=== PATIENT | female | born 1960 | race Caucasian/White ===

== ENCOUNTER 2017-01-29 14:24 | Inpatient (IN) ==
[2017-01-29] MEDS ORDERED: tiZANidine 4 MG TABLET PO PRN (14:38)
--- NOTE | 2017-01-29 15:04 | Internal Med History&Physical ---
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 Well diagnosed itself patient had a redo for her Qualifiers: Encounter type: subsequent encounter Qualified Code(s): T84.038D - Mechanical loosening of other internal prosthetic joint, subsequent encounter; Z96.659 - Presence of unspecified artificial knee joint; Z96.659 - Presence of unspecified artificial knee joint (2) Status post revision of total knee replacement Current visit: No Status: Acute This the reason for the revision was the aseptic loosening of the prosthesis Qualifiers: Laterality: left Qualified Code(s): Z96.652 - Presence of left artificial knee joint (3) DMII (diabetes mellitus, type 2) Current visit: No Status: Chronic History of DM type II LAD does COPD Qualifiers: Diabetes mellitus complication status: without complication Diabetes mellitus longterm insulin use: unspecified longterm insulin use status Qualified Code(s): E11.9 - Type 2 diabetes mellitus without complications Internal Medicine - H&P: HPI Chief complaint: Patient had a redo of a total knee replacement. This was called an asepti Admitted From: Hospital to Hospital Transfer Plans for Post Hospital Care: Home History of present illness: Ms. Barney is a 56 year old female Past Med Surg Social Fam HX - Past Medical History Medical history: COPD, diabetes, GERD, hyperlipidemia, hypertension, kidney stones, other Psychiatric history: anxiety, depression, panic disorder - Past Surgical History Surgical History: , cataract, cholecystectomy, hysterectomy, other - Social History Smoking Status: Current every day smoker Smokeless Tobacco Status: No Alcohol use: none Drug use: marijuana - Family History Mother Adopted: No Living Status: Still Living Internal Medicine - H&P: Meds Albuterol Sulfate [Albuterol Inhaler] 1 - 2 puff IH Q6HR PRN 12/22/14 [History] Budesonide/Formoterol 160/4.5 [Symbicort] 2 puff IH BIDR 12/22/14 [History] Chlordiazepoxide/Clidinium 1 each PO TID 12/22/14 [History] DULoxetine [Cymbalta] 120 mg PO QAM 12/22/14 [History] Esomeprazole Magnesium [Nexium] 40 mg PO BID 12/22/14 [History] Ezetimibe [Zetia] 10 mg PO DAILY 12/22/14 [History] Fluticasone Propionate Nasal [Flonase] 2 spray NS DAILY 12/22/14 [History] Gabapentin [Neurontin] 600 mg PO HS 12/22/14 [History] rOPINIRole [Requip] 2 mg PO HS 12/22/14 [History] ALPRAZolam [Xanax 1 MG Tablet] 1 mg PO TID #6 tablet 01/25/17 [Rx] Aspirin Enteric Coated [Aspirin EC] 325 mg PO DAILY #21 tablet.dr 01/25/17 [Rx] Alprazolam [Xanax] 2 mg PO TID PRN 01/26/17 [History] Celecoxib [Celebrex] 100 mg PO BID 01/26/17 [History] Glimepiride [Amaryl] 2 mg PO BID 01/26/17 [History] Insulin Glargine,Hum.rec.anlog [Lantus Solostar] 15 units SQ HS 01/26/17 [ History] Lovastatin 80 mg PO HS 01/26/17 [History] Metformin HCl [Glucophage Xr] 500 mg PO DAILY 01/26/17 [History] Mv,Iron,Min/Folic Acid/Biotin [Hair, Skin and Nails Softgel] 66.7 mcg PO DAILY 01/26/17 [History] Omeprazole [PriLOSEC] 40 mg PO BID 01/26/17 [History] Pioglitazone [Actos] 45 mg PO 0800 01/26/17 [History] SitaGLIPtin [Januvia] 100 mg PO DAILY 01/26/17 [History] Tizanidine HCl 4 - 8 mg PO HS PRN 01/26/17 [History] cloNIDine HCl [Clonidine HCl] 0.3 mg PO DAILY 01/26/17 [History] OxyCODONE Immed Rel [Roxicodone 5 MG] 5 - 10 mg PO Q6H PRN #40 tablet 01/27/17 [ Rx] 3 Allergy/AdvReac Type Severity Reaction Status Date / Time atorvastatin [From Lipitor] Allergy Swelling Verified 12/22/14 22:16 of Lip/Tongue/Throat rosuvastatin [From Crestor] Allergy Swelling Verified 12/22/14 22:16 of Lip/Tongue/Throat acetaminophen [From Percocet] AdvReac See Verified 01/26/17 10:57 Comments morphine AdvReac Vomiting Verified 04/28/16 12:31 Oxycodone [From Percocet] AdvReac See Verified 01/26/17 10:57 Comments propoxyphene AdvReac Vomiting Verified 01/26/17 10:57 [From Darvocet-N] Varenicline [From Chantix] AdvReac See Verified 01/26/17 11:03 Comments All Systems PM: A 10-system review of systems was performed and is negative for pertinent findings except as documented above in the HPI. - Constitutional Vitals: Temp Pulse Resp BP Pulse Ox 97.9 F 55 15 128/76 92 01/29/17 14:41 01/29/17 14:41 01/29/17 14:41 01/29/17 14:41 01/29/17 14:41 - Head Head exam: Present: atraumatic, normal inspection, normocephalic - Neck Neck exam general surgery: Present: supple, trachea midline. Absent: lymphadenopathy - Respiratory Respiratory exam: Present: CTAB. Absent: accessory muscle use, rales, rhonchi, wheezes - Cardiovascular Cardiovascular exam: Present: RRR, +S1, +S2. Absent: diastolic murmur, gallop, rubs, systolic murmur - GI/Abdominal GI/Abdominal exam: Present: normal bowel sounds, soft, no peritoneal signs. Absent: distended, tenderness Internal Med - H&P Results - Labs Labs: Pending
[2017-01-29] MEDS: *HR* OxyCODONE Immed Rel 5 MG TABLET PO PRN ×2 (16:45→22:02)
[2017-01-29] MEDS: ALPRAZolam 1 MG TABLET PO SCH ×2 (16:45→22:01)
[2017-01-29] MEDS ORDERED: ALPRAZolam 1 MG TABLET PO SCH (21:00)
[2017-01-29] MEDS: rOPINIRole 1 MG TABLET PO SCH (22:00)
[2017-01-29] MEDS: cloNIDine HCl 0.1 MG TABLET PO SCH (22:00)
[2017-01-29] MEDS: Gabapentin 300 MG CAPSULE PO SCH (22:01)
[2017-01-29] MEDS: Celecoxib 100 MG CAPSULE PO SCH (22:01)
[2017-01-29] MEDS: *HR* Glimepiride 2 MG TABLET PO SCH (22:01)
[2017-01-29] MEDS: Insulin DETEMIR 100 UNIT/ML X5UNITS SQ SCH (22:08)
[2017-01-29] MEDS: Budesonide/Formoterol 160/4.5 MDI IH SCH (22:25)
[2017-01-30 05:28] LABS: Basophils # 0.1 K/mcL (0.0-0.2); Basophils % 0.5 %; Eosinophils # 0.4 K/mcL (0.0-0.6); Eosinophils % 2.8 %; Hematocrit 36.7 % (35.3-44.9); Hemoglobin 12.2 g/dL (11.5-15.4); Immature Granulocytes % 0.5 % (0-4); Lymphocytes # 4.2 K/mcL (0.6-4.6); Lymphocytes % 30.8 %; Mean Corpuscular HGB Conc 33.2 g/dL (31.6-35.5); Mean Corpuscular Volume 84.2 fL (83.0-100.0); Mean Platelet Volume 10.6 fL (9.4-12.4); Monocytes # 0.7 K/mcL (0.0-1.3); Platelet Count 252 K/mcL (140-400); Red Blood Count 4.36 M/mcL (3.82-4.97); Red Cell Distribution Width 15.9 % (11.5-14.5); Segmented Neutrophils % 60.4 %
[2017-01-30 05:33] LABS: Neutrophils # 8.2 K/mcL (1.6-8.9)
[2017-01-30 05:43] LABS: BUN/Creatinine Ratio 29 (6-26); Blood Urea Nitrogen 21 mg/dL (7-20); Calcium 9.5 mg/dL (8.6-10.8); Carbon Dioxide 26 mEq/L (19-29); Chloride 102 mEq/L (98-109); Glucose 154 mg/dL (70-99); Osmolality,Calculated 294 (280-300); Potassium 3.8 mEq/L (3.5-4.5); Sodium 139 mEq/L (136-145); eGFR For African Americans > 60 (> 60); eGFR For Non-African Americans > 60 (> 60)
[2017-01-30] MEDS: *HR* Enoxaparin 40 MG/0.4 ML SYRINGE SQ SCH (06:28)
[2017-01-30] MEDS: BIOTIN PO SCH (08:23)
[2017-01-30] MEDS: *HR* SitaGLIPtin 100 MG TABLET PO SCH (08:23)
[2017-01-30] MEDS: MV IRON MIN PO SCH (08:23)
[2017-01-30] MEDS: Budesonide/Formoterol 160/4.5 MDI IH SCH ×2 (08:23→21:00)
[2017-01-30] MEDS: (Ezetimibe [Zetia] 10 MG) PO SCH (08:23)
[2017-01-30] MEDS: FOLIC ACID PO SCH (08:23)
[2017-01-30] MEDS: *HR* Metformin 500 MG TABLET PO SCH ×2 (08:24→21:00)
[2017-01-30] MEDS: ALPRAZolam 1 MG TABLET PO SCH ×3 (08:25→20:58)
[2017-01-30] MEDS: Celecoxib 100 MG CAPSULE PO SCH ×2 (08:25→21:00)
[2017-01-30] MEDS: Aspirin Enteric Coated 325 MG Tablet PO SCH (08:25)
[2017-01-30] MEDS: *HR* Glimepiride 2 MG TABLET PO SCH ×2 (08:25→20:58)
[2017-01-30] MEDS: *HR* Pioglitazone 45 MG TABLET PO SCH (08:25)
[2017-01-30] MEDS: Fluticasone Propionate Nasal 50 MCG/SPRAY BOTTLE NS SCH (08:26)
[2017-01-30] MEDS: *HR* OxyCODONE Immed Rel 5 MG TABLET PO PRN ×3 (08:32→21:10)
[2017-01-30] MEDS ORDERED: cloNIDine HCl 0.1 MG TABLET PO SCH (09:00)
--- NOTE | 2017-01-30 14:20 | Internal Med Progress Note ---
Date of Encounter: 01/30/17 Time of Encounter: 14:18 - Assessment and plan (1) Aseptic loosening of prosthetic knee Current Visit: No Status: Chronic Assessment and plan: Working with the therapist status post aseptic loosening of prosthetic total knee replacement and she is here for rehabilitation Qualifiers: Encounter type: subsequent encounter Qualified Code(s): T84.038D - Mechanical loosening of other internal prosthetic joint, subsequent encounter; Z96.659 - Presence of unspecified artificial knee joint; Z96.659 - Presence of unspecified artificial knee joint (2) Status post revision of total knee replacement Current Visit: No Status: Acute Assessment and plan: Revision of knee as noted above Qualifiers: Laterality: left Qualified Code(s): Z96.652 - Presence of left artificial knee joint (3) DMII (diabetes mellitus, type 2) Current Visit: No Status: Chronic Assessment and plan: Following blood sugar Qualifiers: Diabetes mellitus complication status: without complication 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 Absent: accessory muscle use, rales, rhonchi, wheezes - Cardiovascular Cardiovascular exam: Present: RRR, +S1, +S2. Absent: diastolic murmur, gallop, rubs, systolic murmur - GI/Abdominal GI/Abdominal exam: Present: normal bowel sounds, soft, no peritoneal signs. Absent: distended, tenderness Internal Medicine: Result - Labs CBC & Chem 7: 01/30/17 05:15 01/30/17 05:15 Labs: Short CBC 01/30/17 Range/Units 05:15 WBC 13.5 H (4.3-11.1) K/mcL Hgb 12.2 D (11.5-15.4) g/dL Hct 36.7 (35.3-44.9) % Plt Count 252 (140-400) K/mcL Neutrophils # 8.2 (1.6-8.9) K/mcL BMP 01/30/17 05:15 Sodium 139 Potassium 3.8 Chloride 102 Carbon Dioxide 26 BUN 21 H Creatinine 0.73 Glucose 154 H Calcium 9.5 Lab is okay Consult Discharge Plan - Plan Referrals: Noah Hutson, CANDY SEPARATOR ENROBING [Primary Care Provider] -
[2017-01-30] MEDS: rOPINIRole 1 MG TABLET PO SCH (20:58)
[2017-01-30] MEDS: cloNIDine HCl 0.1 MG TABLET PO SCH (20:58)
[2017-01-30] MEDS: Gabapentin 300 MG CAPSULE PO SCH (20:59)
[2017-01-30] MEDS: Insulin DETEMIR 100 UNIT/ML X5UNITS SQ SCH (21:00)
[2017-01-31] MEDS: *HR* Enoxaparin 40 MG/0.4 ML SYRINGE SQ SCH (06:31)
[2017-01-31] MEDS: *HR* OxyCODONE Immed Rel 5 MG TABLET PO PRN ×4 (06:32→20:39)
[2017-01-31] MEDS: ALPRAZolam 1 MG TABLET PO SCH ×3 (08:07→20:38)
[2017-01-31] MEDS: *HR* Metformin 500 MG TABLET PO SCH ×2 (08:07→20:39)
[2017-01-31] MEDS: Aspirin Enteric Coated 325 MG Tablet PO SCH (08:07)
[2017-01-31] MEDS: *HR* Glimepiride 2 MG TABLET PO SCH ×2 (08:07→20:39)
[2017-01-31] MEDS: *HR* SitaGLIPtin 100 MG TABLET PO SCH (08:08)
[2017-01-31] MEDS: *HR* Pioglitazone 45 MG TABLET PO SCH (08:08)
[2017-01-31] MEDS: Celecoxib 100 MG CAPSULE PO SCH ×2 (08:08→20:40)
[2017-01-31] MEDS: Budesonide/Formoterol 160/4.5 MDI IH SCH ×2 (08:11→20:38)
[2017-01-31] MEDS: Fluticasone Propionate Nasal 50 MCG/SPRAY BOTTLE NS SCH (08:19)
[2017-01-31] MEDS: MV IRON MIN PO SCH (08:19)
[2017-01-31] MEDS: FOLIC ACID PO SCH (08:19)
[2017-01-31] MEDS: BIOTIN PO SCH (08:19)
[2017-01-31] MEDS: (Ezetimibe [Zetia] 10 MG) PO SCH (08:19)
[2017-01-31] MEDS: cloNIDine HCl 0.1 MG TABLET PO SCH (20:39)
[2017-01-31] MEDS: Insulin DETEMIR 100 UNIT/ML X5UNITS SQ SCH (20:39)
[2017-01-31] MEDS: Gabapentin 300 MG CAPSULE PO SCH (20:39)
[2017-01-31] MEDS: rOPINIRole 1 MG TABLET PO SCH (20:40)
[2017-02-01] MEDS: *HR* Enoxaparin 40 MG/0.4 ML SYRINGE SQ SCH (06:13)
[2017-02-01] MEDS: *HR* OxyCODONE Immed Rel 5 MG TABLET PO PRN ×3 (06:13→20:34)
[2017-02-01] MEDS: *HR* SitaGLIPtin 100 MG TABLET PO SCH (07:55)
[2017-02-01] MEDS: *HR* Metformin 500 MG TABLET PO SCH ×2 (07:55→20:34)
[2017-02-01] MEDS: *HR* Glimepiride 2 MG TABLET PO SCH ×2 (07:55→20:34)
[2017-02-01] MEDS: *HR* Pioglitazone 45 MG TABLET PO SCH (07:55)
[2017-02-01] MEDS: ALPRAZolam 1 MG TABLET PO SCH ×3 (07:55→20:35)
[2017-02-01] MEDS: Aspirin Enteric Coated 325 MG Tablet PO SCH (07:56)
[2017-02-01] MEDS: Celecoxib 100 MG CAPSULE PO SCH ×2 (07:56→20:33)
[2017-02-01] MEDS: Budesonide/Formoterol 160/4.5 MDI IH SCH ×2 (07:58→20:33)
[2017-02-01] MEDS: Fluticasone Propionate Nasal 50 MCG/SPRAY BOTTLE NS SCH (07:58)
[2017-02-01] MEDS: MV IRON MIN PO SCH (07:58)
[2017-02-01] MEDS: BIOTIN PO SCH (07:58)
[2017-02-01] MEDS: FOLIC ACID PO SCH (07:58)
[2017-02-01] MEDS: (Ezetimibe [Zetia] 10 MG) PO SCH (07:58)
[2017-02-01] MEDS: rOPINIRole 1 MG TABLET PO SCH (20:33)
[2017-02-01] MEDS: Insulin DETEMIR 100 UNIT/ML X5UNITS SQ SCH (20:33)
[2017-02-01] MEDS: Gabapentin 300 MG CAPSULE PO SCH (20:34)
[2017-02-01] MEDS: cloNIDine HCl 0.1 MG TABLET PO SCH (20:35)
[2017-02-02] MEDS: *HR* OxyCODONE Immed Rel 5 MG TABLET PO PRN ×4 (02:01→14:14)
[2017-02-02 05:54] LABS: Basophils # 0.1 K/mcL (0.0-0.2); Basophils % 0.5 %; Eosinophils # 0.4 K/mcL (0.0-0.6); Eosinophils % 3.4 %; Hematocrit 36.8 % (35.3-44.9); Immature Granulocytes % 0.6 % (0-4); Lymphocytes # 4.2 K/mcL (0.6-4.6); Lymphocytes % 33.4 %; Mean Corpuscular HGB Conc 32.6 g/dL (31.6-35.5); Mean Platelet Volume 10.4 fL (9.4-12.4); Monocytes # 0.8 K/mcL (0.0-1.3); Monocytes % 6.2 %; Platelet Count 272 K/mcL (140-400); Red Blood Count 4.28 M/mcL (3.82-4.97); Red Cell Distribution Width 16.3 % (11.5-14.5); Segmented Neutrophils % 55.9 %
[2017-02-02] MEDS: *HR* Enoxaparin 40 MG/0.4 ML SYRINGE SQ SCH (06:03)
[2017-02-02 06:05] LABS: BUN/Creatinine Ratio 25 (6-26); Blood Urea Nitrogen 17 mg/dL (7-20); Calcium 9.5 mg/dL (8.6-10.8); Carbon Dioxide 26 mEq/L (19-29); Chloride 106 mEq/L (98-109); Glucose 93 mg/dL (70-99); Osmolality,Calculated 291 (280-300); Potassium 3.7 mEq/L (3.5-4.5); Sodium 140 mEq/L (136-145); eGFR For African Americans > 60 (> 60); eGFR For Non-African Americans > 60 (> 60)
[2017-02-02 08:00] VITALS: BP 140/62
[2017-02-02] MEDS: Aspirin Enteric Coated 325 MG Tablet PO SCH (08:43)
[2017-02-02] MEDS: *HR* Glimepiride 2 MG TABLET PO SCH (08:43)
[2017-02-02] MEDS: ALPRAZolam 1 MG TABLET PO SCH ×2 (08:43→15:26)
[2017-02-02] MEDS: *HR* Pioglitazone 45 MG TABLET PO SCH (08:43)
[2017-02-02] MEDS: Celecoxib 100 MG CAPSULE PO SCH (08:43)
[2017-02-02] MEDS: *HR* Metformin 500 MG TABLET PO SCH (08:43)
[2017-02-02] MEDS: *HR* SitaGLIPtin 100 MG TABLET PO SCH (08:44)
[2017-02-02] MEDS: Fluticasone Propionate Nasal 50 MCG/SPRAY BOTTLE NS SCH (08:46)
[2017-02-02] MEDS: Budesonide/Formoterol 160/4.5 MDI IH SCH (08:47)
[2017-02-02] MEDS: (Ezetimibe [Zetia] 10 MG) PO SCH (10:06)
[2017-02-02] MEDS: FOLIC ACID PO SCH (10:09)
[2017-02-02] MEDS: BIOTIN PO SCH (10:09)
[2017-02-02] MEDS: MV IRON MIN PO SCH (10:09)
--- NOTE | 2017-02-02 13:15 | Discharge Summary ---
Date of Encounter: 02/02/17 Time of Encounter: 13:12 - Discharge Diagnosis (1) Aseptic loosening of prosthetic knee Priority: Primary Status: Chronic Qualifiers: Encounter type: subsequent encounter Qualified Code(s): T84.038D - Mechanical loosening of other internal prosthetic joint, subsequent encounter; Z96.659 - Presence of unspecified artificial knee joint; Z96.659 - Presence of unspecified artificial knee joint (2) Status post revision of total knee replacement Priority: Primary Status: Acute Qualifiers: Laterality: left Qualified Code(s): Z96.652 - Presence of left artificial knee joint (3) DMII (diabetes mellitus, type 2) Priority: Secondary Status: Chronic Qualifiers: Diabetes mellitus complication status: without complication 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 Qualified Code(s): E11.9 - Type 2 diabetes mellitus without complications - Discharge Medications Home Medications: Albuterol Sulfate [Albuterol Inhaler] 1 - 2 puff IH Q6HR PRN 12/22/14 [History] Budesonide/Formoterol 160/4.5 [Symbicort] 2 puff IH BIDR 12/22/14 [History] Chlordiazepoxide/Clidinium 1 each PO TID 12/22/14 [History] DULoxetine [Cymbalta] 120 mg PO QAM 12/22/14 [History] Esomeprazole Magnesium [Nexium] 40 mg PO BID 12/22/14 [History] Ezetimibe [Zetia] 10 mg PO DAILY 12/22/14 [History] Fluticasone Propionate Nasal [Flonase] 2 spray NS DAILY 12/22/14 [History] Gabapentin [Neurontin] 600 mg PO HS 12/22/14 [History] rOPINIRole [Requip] 2 mg PO HS 12/22/14 [History] ALPRAZolam [Xanax 1 MG Tablet] 1 mg PO TID #6 tablet 01/25/17 [Rx] Aspirin Enteric Coated [Aspirin EC] 325 mg PO DAILY #21 tablet.dr 01/25/17 [Rx] Alprazolam [Xanax] 2 mg PO TID PRN 01/26/17 [History] Celecoxib [Celebrex] 100 mg PO BID 01/26/17 [History] Glimepiride [Amaryl] 2 mg PO BID 01/26/17 [History] Insulin Glargine,Hum.rec.anlog [Lantus Solostar] 15 units SQ HS 01/26/17 [ History] Lovastatin 80 mg PO HS 01/26/17 [History] Metformin HCl [Glucophage Xr] 500 mg PO DAILY 01/26/17 [History] Mv,Iron,Min/Folic Acid/Biotin [Hair, Skin and Nails Softgel] 66.7 mcg PO DAILY 01/26/17 [History] Omeprazole [PriLOSEC] 40 mg PO BID 01/26/17 [History] Pioglitazone [Actos] 45 mg PO 0800 01/26/17 [History] SitaGLIPtin [Januvia] 100 mg PO DAILY 01/26/17 [History] Tizanidine HCl 4 - 8 mg PO HS PRN 01/26/17 [History] cloNIDine HCl [Clonidine HCl] 0.3 mg PO DAILY 01/26/17 [History] OxyCODONE Immed Rel [Roxicodone 5 MG] 5 - 10 mg PO Q6H PRN #40 tablet 01/27/17 [ Rx] Allergies/Adverse Reactions: 3 Allergy/AdvReac Type Severity Reaction Status Date / Time atorvastatin [From Lipitor] Allergy Swelling Verified 12/22/14 22:16 of Lip/Tongue/Throat rosuvastatin [From Crestor] Allergy Swelling Verified 12/22/14 22:16 of Lip/Tongue/Throat acetaminophen [From Percocet] AdvReac See Verified 01/29/17 16:49 Comments morphine AdvReac Vomiting Verified 04/28/16 12:31 Oxycodone [From Percocet] AdvReac See Verified 01/26/17 10:57 Comments propoxyphene AdvReac Vomiting Verified 01/26/17 10:57 [From Darvocet-N] Varenicline [From Chantix] AdvReac See Verified 01/26/17 11:03 Comments Date of admission: 01/29/17 14:27 Primary care physician: Noah Hutson CNP Consults: 01/29/17 15:04 Consult to Occupational Therapy [CONS] Routine Comment: Evaluate, develop and implement POC Reason for Consult: eval Consult to Physical Therapy [CONS] Routine Comment: Evaluate, develop and implement POC Reason for Consult: eval Consult to Recreational Therapy [CONS] Routine Comment: Evaluate, develop and implement POC Consult to Penal Officer [CONS] Routine Reason for SW Consult: d/c planning 01/29/17 15:14 Consult to Physical Medicine/Rehab [CONS] Routine Reason for Consult: total knee replacement Call Completed: Yes Discharging clinician: Sina Hassan Anticipated date of discharge: 02/02/17 - Patient Status Disposition: Home, Self-Care Condition: Good Functional capacity at discharge: uses cane/walker Overall status at discharge: patient is progressing back to baseline - Discharge Instructions Follow Up With: Noah Hutson, DAMAGE ASSESSOR [Primary Care Provider] - - Diet and Activity Activity: ambulate only with your walker Diet: diabetic diet Interval History: Patient was transferred here for rehabilitation after redo over total knee Hospital course: Ms. Barney is a 56 year old female Patient is ambulating preparing food and getting up and doing well will go home today. - Time Spent with Patient Total time spent providing and/or coordinating discharge services: Less than 30 minutes - Constitutional Vitals: Temp Pulse Resp BP Pulse Ox 97.5 F L 85 16 140/62 92 02/02/17 07:00 02/02/17 09:42 02/02/17 09:42 02/02/17 09:42 02/02/17 09:42 - Head Head exam: Present: atraumatic, normal inspection, normocephalic - Neck Neck exam general surgery: Present: supple, trachea midline. Absent: lymphadenopathy - Respiratory Respiratory exam: Present: CTAB. Absent: accessory muscle use, rales, rhonchi, wheezes - Cardiovascular Cardiovascular exam: Present: RRR, +S1, +S2. Absent: diastolic murmur, gallop, rubs, systolic murmur
--- NOTE | 2017-02-02 18:17 | Internal Med Progress Note ---
Date of Encounter: 02/02/17 Time of Encounter: 10:10 - Assessment and plan (1) Status post revision of total knee replacement Status: Acute Assessment and plan: stable, postoperatively with no sign of complication or infection. No other obvious sequelae. Qualifiers: Laterality: left Qualified Code(s): Z96.652 - Presence of left artificial knee joint (2) Chronic pain Status: Chronic Assessment and plan: Tolerating pain on current regimen. 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 Afebrile. Qualifiers: Hypertension type: essential hypertension Qualified Code(s): I10 - Essential (primary) hypertension - Subjective Interval history: NOTE: This Note is a LATE ENTRY due to EHR access issues. Doing well. Observed in therapy and progressing well. Still has some pain, but she's pleased with progress. Pain has been running 5-7 out of 10. No nausea, dyspnea, cough, chest pain, palpitations, abdominal pain, constipation or diarrhea, headache, fever chills, sweats, or other no complaints. Bowels and bladder with normal function. "Doing fine." - Constitutional Vitals: Reviewed, stable. General appearance: Present: cooperative, A&O X 3, no acute distress, obese - Head Head exam: Present: atraumatic, normal inspection, normocephalic - Eye Eye exam: Present: EOMI, PERRL, conjuntiva pink, sclera anicteric. Absent: conjunctival injection, nystagmus Pupils: Present: PERRL - Neck Neck exam general surgery: Present: supple, trachea midline. Absent: lymphadenopathy, nuchal rigidity - Respiratory Respiratory exam: Present: CTAB. Absent: accessory muscle use, rhonchi, wheezes Additional comments: Rales which clear with deep breath and cough. - Cardiovascular Cardiovascular exam: Present: RRR, +S1, +S2. Absent: diastolic murmur, gallop, rubs, systolic murmur - GI/Abdominal GI/Abdominal exam: Present: normal bowel sounds, soft, no peritoneal signs. Absent: bruit, distended, hepatomegaly, splenomegaly, tenderness - Neurological Exam Neurological exam: Present: CN II-XII intact, oriented X3, no focal deficits. Absent: abnormal gait, pronater drift, facial droop, speech deficit - Psychiatric Psychiatric exam: Present: normal affect Internal Medicine: Result - Labs CBC & Chem 7: 02/02/17 05:40 02/02/17 05:40 Labs: Short CBC 02/02/17 Range/Units 05:40 WBC 12.5 H (4.3-11.1) K/mcL Hgb 12.0 (11.5-15.4) g/dL Hct 36.8 (35.3-44.9) % Plt Count 272 (140-400) K/mcL Neutrophils # 7.0 (1.6-8.9) K/mcL BMP 02/02/17 05:40 Sodium 140 Potassium 3.7 Chloride 106 Carbon Dioxide 26 BUN 17 Creatinine 0.68 Glucose 93 Calcium 9.5 Consult Discharge Plan - Plan Referrals: Ruddy Burrell MD [Partnered Physician] - 02/05/17 1:15 pm Noah Hutson CNP [Primary Care Provider] -
--- NOTE | 2017-02-02 18:32 | Internal Med Progress Note ---
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 Had a good night. wants to go home. Discussed plans -- potentially, tomorrow. Pain slightly improved vs. yesteray. No nausea, dyspnea, cough, chest pain, palpitations, abdominal pain, constipation or diarrhea, headache, fever chills, sweats, or other no complaints. Bowels and bladder with normal function. Denies acute problems. Discussed, as yesterday, her need to quit smoking -- nursing had stated she persistently wanted to go outside and smoke. When I persisted, she states, "That's never going to happen." - Constitutional Vitals: Temp Pulse Resp BP Pulse Ox 97.5 F L 85 16 140/62 92 02/02/17 07:00 02/02/17 09:42 02/02/17 09:42 02/02/17 09:42 02/02/17 09:42 General appearance: Present: cooperative, A&O X 3, no acute distress, obese - Head Head exam: Present: atraumatic, normal inspection, normocephalic - Eye Eye exam: Present: EOMI, PERRL, conjuntiva pink, sclera anicteric. Absent: conjunctival injection Pupils: Present: PERRL - Neck Neck exam general surgery: Present: supple, trachea midline - Respiratory Respiratory exam: Present: CTAB. Absent: accessory muscle use, rales, rhonchi, wheezes Additional comments: Rales resolved, I complimented her and encouraged cough and deep breathing, again. - Cardiovascular Cardiovascular exam: Present: RRR, +S1, +S2. Absent: diastolic murmur, gallop, rubs, systolic murmur - GI/Abdominal GI/Abdominal exam: Present: normal bowel sounds, soft, no peritoneal signs. Absent: distended, tenderness Internal Medicine: Result - Labs CBC & Chem 7: 02/02/17 05:40 02/02/17 05:40 Labs: Short CBC 02/02/17 Range/Units 05:40 WBC 12.5 H (4.3-11.1) K/mcL Hgb 12.0 (11.5-15.4) g/dL Hct 36.8 (35.3-44.9) % Plt Count 272 (140-400) K/mcL Neutrophils # 7.0 (1.6-8.9) K/mcL BMP 02/02/17 05:40 Sodium 140 Potassium 3.7 Chloride 106 Carbon Dioxide 26 BUN 17 Creatinine 0.68 Glucose 93 Calcium 9.5 Consult Discharge Plan - Plan Referrals: Ruddy Burrell MD [Partnered Physician] - 02/05/17 1:15 pm Noah Hutson CNP [Primary Care Provider] -
== END 2017-02-02 16:22 | disposition home or self-care (01) | DRG 946 ==
LOC: INPGRE 14:27
PROVIDERS: ADMIT Internal Medicine; ATTEND Internal Medicine

== ENCOUNTER 2017-11-09 13:45 | Observation (INO) ==
--- NOTE | 2017-11-09 14:25 | Emergency Department Note ---
Disposition Clinical Impression: Shingles, Atypical chest pain, Abnormal EKG Disposition: Admitted As Inpatient Condition: Serious Time of Disposition: 21:54 General Adult HPI - General Chief complaint: ED General Medical Stated complaint: multiple complaints Time Seen by Provider: 11/09/17 13:51 Source: patient Limitations: no limitations Nursing Notes Reviewed: Yes Vital Signs Reviewed: Yes - History of Present Illness HPI Narrative: Patient presents today with CC of: UTI, knee pain, heart attack Patient describes issue began around September when the patient noticed that she was having problems with her urine and was seen [facility] has started on Cipro for urinary tract infection. She says the symptoms went away but she has been having some pressure with urination so she thinks they may be coming back. She has not been having any burning or blood in the urine. She has not been having any incontinence. She said she also was concerned because recently on Thursday she was short of breath and having symptoms that were similar to previous heart attack. Patient states symptoms resolved but she generally feels poorly and she is not sure if that is because of the urinary problems or from a heart attack symptoms on Thursday. Patient denies any diarrhea or chest pain. She does have a history of COPD and asthma and has some shortness of breath is worse when the weather gets hot and warm. Patient states she is on 3 L of oxygen at home. Patient also notes that she has been having problems with her left knee getting injections and she has been taking Tylenol for that pain but it has not been helping. She still has pain in the left knee sharp pain that is worse with movement. Pain Scale: 8 - Related Data Home Medications Medication Instructions Recorded Confirmed Albuterol Sulfate [Albuterol 1 - 2 puff IH Q6HR PRN 12/22/14 11/09/17 Inhaler] Budesonide/Formoterol 160/4.5 2 puff IH BIDR 12/22/14 11/09/17 [Symbicort] Chlordiazepoxide/Clidinium 1 each PO TID 12/22/14 11/09/17 DULoxetine [Cymbalta] 120 mg PO QAM 12/22/14 11/09/17 Esomeprazole Magnesium [Nexium] 40 mg PO BID 12/22/14 11/09/17 Ezetimibe [Zetia] 10 mg PO DAILY 12/22/14 11/09/17 Fluticasone Propionate Nasal 2 spray NS DAILY 12/22/14 11/09/17 [Flonase] Gabapentin [Neurontin] 600 mg PO HS 12/22/14 11/09/17 rOPINIRole [Requip] 2 mg PO HS 12/22/14 11/09/17 Alprazolam [Xanax] 2 mg PO TID PRN 01/26/17 11/09/17 Glimepiride [Amaryl] 2 mg PO BID 01/26/17 11/09/17 Insulin Glargine,Hum.rec.anlog 15 units SQ HS 01/26/17 11/09/17 [Lantus Solostar] Lovastatin 80 mg PO HS 01/26/17 11/09/17 Metformin HCl [Glucophage Xr] 750 mg PO DAILY 01/26/17 11/09/17 Mv,Iron,Min/Folic Acid/Biotin 66.7 mcg PO DAILY 01/26/17 11/09/17 [Hair, Skin and Nails Softgel] Pioglitazone [Actos] 45 mg PO 0800 01/26/17 11/09/17 SitaGLIPtin [Januvia] 100 mg PO DAILY 01/26/17 11/09/17 Tizanidine HCl 4 - 8 mg PO HS PRN 01/26/17 11/09/17 Oxybutynin Chloride [Ditropan Xl] 5 mg PO DAILY 04/08/17 11/09/17 PARoxetine HCl [Paroxetine HCl] 10 mg PO BID 04/08/17 11/09/17 Previous Rx's Medication Instructions Recorded Aspirin 81 mg PO DAILY tab.chew 04/10/17 Metoprolol [Lopressor] 12.5 mg PO BID tablet 04/10/17 Allergies Allergy/AdvReac Type Severity Reaction Status Date / Time atorvastatin [From Lipitor] Allergy Swelling Verified 04/08/17 08:17 of Lip/Tongue/Throat rosuvastatin [From Crestor] Allergy Swelling Verified 04/08/17 08:17 of Lip/Tongue/Throat acetaminophen [From Percocet] AdvReac See Verified 04/08/17 08:17 Comments morphine AdvReac Vomiting Verified 04/08/17 08:17 Oxycodone [From Percocet] AdvReac See Verified 04/08/17 08:17 Comments propoxyphene AdvReac Vomiting Verified 04/08/17 08:17 [From Darvocet-N] Varenicline [From Chantix] AdvReac See Verified 04/08/17 08:17 Comments All systems ED: reviewed and negative except as stated. 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 The patient 's medications, allergies, and medical history was reviewed. Family, Social & Surg histories were reviewed and are not relevant except as noted above in the history of present illness, or below in the respective specific section. I have reviewed and agree with all vital signs synchronously available in EMR at the time of this dictation. Times documented are the time of computer entry, are not necessarily the time the event occurred. At least 10 systems reviewed with patient or surrogate during physical exam and are otherwise negative. Physical EXAM: General ~ Constitutional: Conscious & cooperative , generally healthy large appearance Head: NCAT Eyes: Sclera white , conjunctiva clear , PERRL, non-icteric ENT : L Tympanic membrane normal color and landmarks R Tympanic membrane normal color and landmarks Canals are clear without significant drainage , no obstruction or vesicles , pinna and tragus non tender Nose with pink nasal mucosa, nares patent, non tender without bleeding Mouth - mucous membrane moist , pink , no lesions , no trismus Neck - no masses , supple , no cervical spinous process tenderness Pharynx - no exudate , no petechia or obvious lesions , no airway obstruction or stridor Hematologic ~ Lymphatic ~ Immunologic: Lymphadenopathy normal , no petechia , Skin color, nails and pulses unremarkable. Heart ~ Chest: Reg rate , nml Rhythm , nl S1/S2 , no MRG Lungs: Breath sounds equal , clear to auscultation bilaterally but end expiratory wheezing, no rales or rhonchi , no CVA tenderness Gastrointestinal ~ Abd: Soft & slight tenderness in the suprapubic region and left lower quadrant, BS + in 4 quads , No HSM or masses , no peritoneal signs GenitoUrinary: Deferred Musculoskeletal ~ Back ~ Extremities: Warm and w/o clubbing , cyanosis , or edema. No point tenderness , good ROM of major joints, evidence of previous knee surgery and moderate pain with range of motion testing of the left knee. No redness swelling or bruising noted. Neurologic: Cranial nerves grossly intact, good muscle strength , attention good , cooperative , Alert and oriented x4 Psychiatric: Calm , Insight relatively good and mood sad and somewhat flat Skin: No rashes , good skin turgor , cap refill 2-3 seconds , warm and dry - General Limitations: no limitations General appearance: alert, in no apparent distress Course Vital Signs Temperature 98.2 F 11/09/17 13:55 Pulse Rate 65 11/09/17 13:55 Respiratory Rate 16 11/09/17 13:55 Blood Pressure 119/81 11/09/17 13:55 O2 Sat by Pulse Oximetry 98 11/09/17 13:55 Temperature 97.9 F 11/09/17 20:45 Pulse Rate 70 11/09/17 20:45 Respiratory Rate 15 11/09/17 20:45 Blood Pressure 95/58 11/09/17 20:45 O2 Sat by Pulse Oximetry 99 11/09/17 20:45 Oxygen Delivery Oxygen Delivery Room Air Medical Decision Making - MDM Narrative Medical decision making narrative: MDM: History and physical exam is consistent with - pneumonia UTI, bladder spasm, atypical CP DDx included multiple etiologies for the symptoms such as - atypical CP, urinary tract infection, bladder spasm, diverticulosis ACS, Pneumonia, pneumothorax, Gerd, AAA, PE XRAYS: Questionable pneumonia on x-ray also possible infiltrate visualized on CT scan Critical Care: None Condition and evaluation here was discussed in detail. Labwork, and test results were reviewed with the patient. She is agreeable to admitting to the hospital for evaluation and treatment of the pneumonia as well as continued observation and cardiac biomarkers and telemetry for the shortness of breath and recent Thursday symptoms of chest pain - Lab Data Result diagrams: 11/09/17 14:45 11/09/17 14:45 Lab Results 11/09/17 11/09/17 11/09/17 Range/Units 14:45 14:45 14:45 WBC 11.7 H (4.3-11.1) K/mcL RBC 4.76 (3.82-4.97) M/mcL Hgb 14.0 (11.5-15.4) g/dL Hct 42.1 (35.3-44.9) % MCV 88.4 (83.0-100.0) fL MCH 29.4 (28.0-33.3) pg MCHC 33.3 (31.6-35.5) g/dL RDW 16.1 H (11.5-14.5) % Plt Count 305 (140-400) K/mcL MPV 10.1 (9.4-12.4) fL Immature Gran % 0.4 (0-4) % Seg Neutrophils % 61.5 % Lymphocytes % 32.0 % Monocytes % 4.2 % Eosinophils % 1.6 % Basophils % 0.3 % Neutrophils # 7.2 (1.6-8.9) K/mcL Lymphocytes # 3.7 (0.6-4.6) K/mcL Monocytes # 0.5 (0.0-1.3) K/mcL Eosinophils # 0.2 (0.0-0.6) K/mcL Basophils # 0.0 (0.0-0.2) K/mcL PT 11.7 (9.4-12.1) Seconds INR 1.0 APTT 33.7 (26.0-36.0) Seconds VBG pH (7.32-7.42) pH Units VBG pCO2 (41-51) mmHg VBG pO2 (25-50) mmHg VBG HCO3 (21-27) mEq/L Sodium 135 L (136-145) mEq/L Potassium 4.2 (3.5-5.1) mEq/L Chloride 104 (98-107) mEq/L Carbon Dioxide 24 (23-29) mEq/L BUN 25 H (6-20) mg/dL Creatinine 0.93 (0.60-1.20) mg/dL Est GFR ( Amer) > 60 (> 60) Est GFR (Non-Af Amer) > 60 (> 60) BUN/Creatinine Ratio 27 H (6-26) Glucose 136 H (70-105) mg/dL Calculated Osmolality 286 (280-300) Lactic Acid (0.5-2.2) mmol/L Calcium 9.9 (8.6-10.3) mg/dL Troponin I < 0.03 (< 0.04) ng/mL Urine Color (Yellow) Urine Clarity (Clear) Urine pH (5.0-8.0) pH Units Ur Specific [place] (1.010-1.025) Urine Protein (Neg-Trace) mg/dL Urine Glucose (UA) (Normal) mg/dL Urine Ketones (Negative) mg/dL Urine Blood (Negative) Urine Nitrite (Negative) Urine Bilirubin (Negative) Urine Urobilinogen (Normal) mg/dL Ur Leukocyte Esterase (Negative) Ur Culture Indicated? (NO) 11/09/17 11/09/17 11/09/17 Range/Units 15:05 16:05 16:21 WBC (4.3-11.1) K/mcL RBC (3.82-4.97) M/mcL Hgb (11.5-15.4) g/dL Hct (35.3-44.9) % MCV (83.0-100.0) fL MCH (28.0-33.3) pg MCHC (31.6-35.5) g/dL RDW (11.5-14.5) % Plt Count (140-400) K/mcL MPV (9.4-12.4) fL Immature Gran % (0-4) % Seg Neutrophils % % Lymphocytes % % Monocytes % % Eosinophils % % Basophils % % Neutrophils # (1.6-8.9) K/mcL Lymphocytes # (0.6-4.6) K/mcL Monocytes # (0.0-1.3) K/mcL Eosinophils # (0.0-0.6) K/mcL Basophils # (0.0-0.2) K/mcL PT (9.4-12.1) Seconds INR APTT (26.0-36.0) Seconds VBG pH 7.52 H (7.32-7.42) pH Units VBG pCO2 28 L (41-51) mmHg VBG pO2 110 H (25-50) mmHg VBG HCO3 22 (21-27) mEq/L Sodium (136-145) mEq/L Potassium (3.5-5.1) mEq/L Chloride (98-107) mEq/L Carbon Dioxide (23-29) mEq/L BUN (6-20) mg/dL Creatinine (0.60-1.20) mg/dL Est GFR ( Amer) (> 60) Est GFR (Non-Af Amer) (> 60) BUN/Creatinine Ratio (6-26) Glucose (70-105) mg/dL Calculated Osmolality (280-300) Lactic Acid 1.6 (0.5-2.2) mmol/L Calcium (8.6-10.3) mg/dL Troponin I (< 0.04) ng/mL Urine Color Yellow (Yellow) Urine Clarity Clear (Clear) Urine pH 6.0 (5.0-8.0) pH Units Ur Specific [place] 1.020 (1.010-1.025) Urine Protein Negative (Neg-Trace) mg/dL Urine Glucose (UA) Normal (Normal) mg/dL Urine Ketones Negative (Negative) mg/dL Urine Blood Negative (Negative) Urine Nitrite Negative (Negative) Urine Bilirubin Negative (Negative) Urine Urobilinogen Normal (Normal) mg/dL Ur Leukocyte Esterase Negative (Negative) Ur Culture Indicated? NO (NO) - EKG Data EKG #1 EKG results narrative: EKG shows sinus rhythm with an irregular baseline with a very mildly shortened OR interval. No delta waves present. No acute injury pattern is noted OR interval is 113. Q congregational 105. QTc 410. T-wave inversions inferiorly in leads 3 and aVF
[2017-11-09] MEDS ORDERED: Ipratropium/Albuterol Neb 3 ML IH ONE (14:40)
[2017-11-09 14:56] LABS: Basophils % 0.3 %; Eosinophils # 0.2 K/mcL (0.0-0.6); Eosinophils % 1.6 %; Hematocrit 42.1 % (35.3-44.9); Immature Granulocytes % 0.4 % (0-4); Lymphocytes # 3.7 K/mcL (0.6-4.6); Mean Corpuscular HGB Conc 33.3 g/dL (31.6-35.5); Mean Corpuscular Hemoglobin 29.4 pg (28.0-33.3); Mean Corpuscular Volume 88.4 fL (83.0-100.0); Mean Platelet Volume 10.1 fL (9.4-12.4); Monocytes # 0.5 K/mcL (0.0-1.3); Monocytes % 4.2 %; Neutrophils # 7.2 K/mcL (1.6-8.9); Platelet Count 305 K/mcL (140-400); Red Blood Count 4.76 M/mcL (3.82-4.97); Red Cell Distribution Width 16.1 % (11.5-14.5); Segmented Neutrophils % 61.5 %
[2017-11-09 15:03] LABS: Prothrombin Time 11.7 Seconds (9.4-12.1)
[2017-11-09 15:06] LABS: Activated Partial Thrombo Time 33.7 Seconds (26.0-36.0)
[2017-11-09 15:10] LABS: BUN/Creatinine Ratio 27 (6-26); Blood Urea Nitrogen 25 mg/dL (6-20); Calcium 9.9 mg/dL (8.6-10.3); Carbon Dioxide 24 mEq/L (23-29); Chloride 104 mEq/L (98-107); Glucose 136 mg/dL (70-105); Osmolality,Calculated 286 (280-300); Potassium 4.2 mEq/L (3.5-5.1); Sodium 135 mEq/L (136-145); eGFR For African Americans > 60 (> 60); eGFR For Non-African Americans > 60 (> 60)
[2017-11-09 15:18] LABS: Troponin I < 0.03 ng/mL (< 0.04)
[2017-11-09 15:19] LABS: Bilirubin,Urine Negative (Negative); Blood,Urine Negative (Negative); Clarity,Urine Clear (Clear); Color,Urine Yellow (Yellow); Glucose,Urine (UA) Normal (Normal); Ketones,Urine Negative (Negative); Leukocyte Esterase,Urine Negative (Negative); Nitrite,Urine Negative (Negative); Protein,Urine Negative (Neg-Trace); Urobilinogen,Urine Normal (Normal)
[2017-11-09] MEDS ORDERED: 0.9 % Sodium Chloride 500 ML IVC ONE (15:59)
[2017-11-09] MEDS ORDERED: *HR* HYDROcodone/Acet 5/325 mg TABLET PO ONE (16:23)
[2017-11-09 16:24] LABS: VBG HCO3 22 mEq/L (21-27); VBG PCO2 28 mmHg (41-51); VBG PH 7.52 pH Units (7.32-7.42); VBG PO2 110 mmHg (25-50)
[2017-11-09] MEDS ORDERED: Levofloxacin 750 MG/150 ML 750 MG/150 ML BAG IVPB ONE (16:34)
[2017-11-09] MEDS ORDERED: Ketorolac 30 MG/ML VIAL IVP ONE (17:51)
[2017-11-09] MEDS ORDERED: Insulin DETEMIR 100 UNIT/ML per UNIT SQ ONE (22:44)
[2017-11-09] MEDS ORDERED: Naloxone 0.4 MG/ML INJ IVP PRN (22:44)
[2017-11-09] MEDS ORDERED: rOPINIRole 1 MG TABLET PO SCH (22:44)
[2017-11-09] MEDS ORDERED: methylPREDNISolone 125 MG/2 ML VIAL IVP ONE (23:00)
[2017-11-10] MEDS: 0.9 % Sodium Chloride 1,000 ML IVC SCH ×2 (00:15→07:56)
[2017-11-10] MEDS: Budesonide/Formoterol 160/4.5 MDI IH SCH ×3 (00:20→21:16)
[2017-11-10] MEDS: Gabapentin 300 MG CAPSULE PO SCH ×2 (00:23→21:13)
[2017-11-10] MEDS: Ipratropium/Albuterol Neb 3 ML IH SCH ×5 (00:24→21:34)
[2017-11-10] MEDS: *HR* Glimepiride 2 MG TABLET PO SCH ×3 (00:26→21:14)
[2017-11-10] MEDS ORDERED: Nitroglycerin 0.4 MG TAB.SUBL SL PRN (04:45)
[2017-11-10] MEDS ORDERED: *HR* HYDROcodone/Acet 5/325 mg TABLET PO ONE (04:54)
[2017-11-10 05:45] LABS: Basophils % 0.2 %; Eosinophils % 0.1 %; Hematocrit 38.6 % (35.3-44.9); Hemoglobin 12.7 g/dL (11.5-15.4); Immature Granulocytes % 0.5 % (0-4); Lymphocytes # 1.3 K/mcL (0.6-4.6); Lymphocytes % 12.6 %; Mean Corpuscular HGB Conc 32.9 g/dL (31.6-35.5); Mean Corpuscular Hemoglobin 29.7 pg (28.0-33.3); Mean Corpuscular Volume 90.2 fL (83.0-100.0); Mean Platelet Volume 10.4 fL (9.4-12.4); Monocytes # 0.1 K/mcL (0.0-1.3); Monocytes % 0.7 %; Neutrophils # 8.9 K/mcL (1.6-8.9); Platelet Count 250 K/mcL (140-400); Red Blood Count 4.28 M/mcL (3.82-4.97); Red Cell Distribution Width 16.3 % (11.5-14.5); Segmented Neutrophils % 85.9 %
[2017-11-10 06:00] LABS: Calcium 9.4 mg/dL (8.6-10.3); Potassium 4.5 mEq/L (3.5-5.1)
[2017-11-10] MEDS: METFORMIN XR 750MG PO SCH ×2 (07:52→21:21)
[2017-11-10] MEDS: Fluorometholone OPTH 5 ML BOTTLE OP SCH ×3 (07:52→21:21)
[2017-11-10] MEDS ORDERED: *HR* SitaGLIPtin 100 MG TABLET PO SCH (08:00)
[2017-11-10] MEDS ORDERED: *HR* Pioglitazone 45 MG TABLET PO SCH (08:00)
[2017-11-10] MEDS ORDERED: ZETIA 10MG PO SCH (09:00)
[2017-11-10] MEDS ORDERED: METFORMIN 750 MG PO SCH (09:00)
[2017-11-10] MEDS ORDERED: Fluticasone Propionate Nasal 50 MCG/SPRAY BOTTLE NS SCH (09:00)
[2017-11-10] MEDS: Aspirin 81 MG TAB.CHEW PO SCH (09:17)
[2017-11-10] MEDS: Metoprolol XL (24 HR) Succ 25 MG TAB.ER.24H PO SCH (09:20)
[2017-11-10] MEDS: Multivit/Ca/Min/Fe/FA 1 TAB TABLET PO SCH (09:20)
[2017-11-10] MEDS: *HR* Ticagrelor 90 MG TABLET PO SCH ×2 (09:20→21:14)
[2017-11-10] MEDS: Isosorbide MONOnitrate (24 HR) 30 MG TAB.ER.24H PO SCH (09:20)
[2017-11-10] MEDS ORDERED: *HR* Dextrose 50 % in Water (Syg) 50 ML SYRINGE IVP PRN (10:31)
[2017-11-10] MEDS ORDERED: D5% in Water 1,000 ML IVC PRN (10:31)
[2017-11-10] MEDS ORDERED: Dextrose Gel 15 GM/37.5 ML TUBE PO PRN ×2 (10:31)
[2017-11-10] MEDS: Insulin LISPRO 300 UNITS/3 ML VIAL SQ SCH ×2 (11:51→17:33)
[2017-11-10] MEDS: ALPRAZolam 1 MG TABLET PO PRN ×2 (11:52→21:12)
--- NOTE | 2017-11-10 12:32 | Internal Med History&Physical ---
Date of Encounter: 11/10/17 Time of Encounter: 12:29 Assessment and Plan (1) COPD exacerbation Current visit: Yes Status: Acute Continue Levaquin and Solu-Medrol. Continue oxygen as needed and inhaled breathing treatments. Will monitor (2) Chronic pain Current visit: Yes Status: Chronic Complains of right knee pain. Follow up with ortho as scheduled. Continue Tylenol as needed for pain. Qualifiers: Chronic pain type: other chronic pain Qualified Code(s): G89.29 - Other chronic pain (3) DMII (diabetes mellitus, type 2) Current visit: Yes Status: Chronic Monitor fingerstick blood sugars. Continue Levemir. Continue sliding scale as ordered. Will adjust medications as necessary. 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 Monitor blood pressure. Qualifiers: Hypertension type: essential hypertension Qualified Code(s): I10 - Essential (primary) hypertension (5) Nicotine abuse Current visit: Yes Status: Chronic Education provided on smoking cessation. (6) Obesity Current visit: Yes Status: Chronic Education provided on lifestyle changes. Qualifiers: Obesity type: unspecified obesity type Obesity classification: adult class 3 (BMI >= 40) Serious obesity comorbidity presence: unspecified whether serious comorbidity present Body mass index: BMI 40.0-44.9 Qualified Code(s) : E66.9 - Obesity, unspecified; Z68.41 - Body mass index (BMI) 40.0-44.9, adult ; Z68.41 - Body mass index (BMI) 40.0-44.9, adult; Z68.41 - Body mass index (BMI ) 40.0-44.9, adult; Z68.41 - Body mass index (BMI) 40.0-44.9, adult Internal Medicine - H&P: HPI Admitted From: Emergency Dept Plans for Post Hospital Care: Home History of present illness: Ms. Barney is a 57 year old female transferred to unit after presenting to the emergency department with complains of shortness of breath. Patient states that she has not felt well for a few days. She said she felt like she had the flu. These were the same symptoms that she has experienced before when having an AR. Denies chest pain. Patient has history of COPD, asthma, hypertension, hyperlipidemia, obesity, STEMI with stents placed, chronic pain. Complains of increased left knee pain. Seeing Dr Burrell and has been receiving injections in the recent past. Patient denies shortness of breath, chest pain, fever, chills , nausea, vomiting or diarrhea at this time. She is on 3 L of oxygen at home while asleep. Maintaining oxygen sets greater than 94% at this time on room air. Received Levaquin and Solu-Medrol IV in the emergency room. Will continue at this time. Past Med Surg Social Fam HX - Past Medical History Medical history: CHF, COPD, coronary artery disease, diabetes, GERD, hyperlipidemia, hypertension, kidney stones, myocardial infarction, other Additional medical history: CHRONIC PAIN. CARDIAC ARREST. 7 CARDIAC STENTS Psychiatric history: anxiety, depression, panic disorder - Past Surgical History Surgical History: , cataract, cholecystectomy, hysterectomy, other Additional surgical history: Bilat. TKR - Social History Smoking Status: Current every day smoker Smokeless Tobacco Status: No Alcohol use: none Drug use: marijuana - Family History Mother Adopted: No Living Status: Still Living Hx Family Cardiac Disorders: Yes (CAD, HTN) Hx Family Endocrine Disorder: Yes (DM) Father Living Status: Hx Family Cancer: Yes (Colon Cancer) Internal Medicine - H&P: Meds Albuterol Sulfate [Albuterol Inhaler] 2 puff IH Q6HR PRN 12/22/14 [History] Budesonide/Formoterol 160/4.5 [Symbicort] 2 puff IH BIDR 12/22/14 [History] Chlordiazepoxide/Clidinium 1 each PO BID 12/22/14 [History] DULoxetine [Cymbalta] 120 mg PO QAM 12/22/14 [History] Gabapentin [Neurontin] 600 mg PO HS 12/22/14 [History] rOPINIRole [Requip] 3 mg PO HS 12/22/14 [History] Alprazolam [Xanax] 2 mg PO TID PRN 01/26/17 [History] Glimepiride [Amaryl] 2 mg PO BID 01/26/17 [History] Lovastatin 80 mg PO HS 01/26/17 [History] Metformin HCl [Glucophage Xr] 750 mg PO BID 01/26/17 [History] Mv,Iron,Min/Folic Acid/Biotin [Hair, Skin and Nails Softgel] 66.7 mcg PO DAILY 01/26/17 [History] Pioglitazone [Actos] 45 mg PO 0800 01/26/17 [History] Oxybutynin Chloride [Ditropan Xl] 5 mg PO DAILY 04/08/17 [History] PARoxetine HCl [Paroxetine HCl] 10 mg PO BID 04/08/17 [History] Aspirin 81 mg PO DAILY tab.chew 04/10/17 [Rx] Albuterol Sulfate 2.5 mg IH Q6HR 11/10/17 [History] Azelastine HCl 1 drop BOTH EYES BID 11/10/17 [History] Esomeprazole Magnesium [Nexium] 40 mg PO DAILY 11/10/17 [History] Fluorometholone 1 drop BOTH EYES TID 11/10/17 [History] Isosorbide MONOnitrate (24 HR) [Imdur] 30 mg PO DAILY 11/10/17 [History] Lisinopril 2.5 mg PO DAILY 11/10/17 [History] Melatonin 10 mg PO HS 11/10/17 [History] Metoprolol Succinate 25 mg PO DAILY 11/10/17 [History] Nitroglycerin 0.4 mg SL PRN PRN 11/10/17 [History] Omeprazole [PriLOSEC] 40 mg PO BID 11/10/17 [History] Ticagrelor [Brilinta] 90 mg PO BID 11/10/17 [History] cloNIDine HCl [CloNIDine HCl] 0.3 mg PO QPM 11/10/17 [History] 3 Allergy/AdvReac Type Severity Reaction Status Date / Time atorvastatin [From Lipitor] Allergy Swelling Verified 04/08/17 08:17 of Lip/Tongue/Throat rosuvastatin [From Crestor] Allergy Swelling Verified 04/08/17 08:17 of Lip/Tongue/Throat acetaminophen [From Percocet] AdvReac See Verified 04/08/17 08:17 Comments morphine AdvReac Vomiting Verified 04/08/17 08:17 Oxycodone [From Percocet] AdvReac See Verified 04/08/17 08:17 Comments propoxyphene AdvReac Vomiting Verified 04/08/17 08:17 [From Darvocet-N] Varenicline [From Chantix] AdvReac See Verified 04/08/17 08:17 Comments All Systems PM: A 10-system review of systems was performed and is negative for pertinent findings except as documented above in the HPI. - Constitutional Constitutional: no chills, no fever(s), no night sweats - EENT Eyes: no change in vision, no discharge, no pain, no photophobia Ears: no ear discharge, no ear pain, no tinnitus Nose, mouth and throat: no dysphagia, no nasal discharge, no neck pain, no sore throat - Cardiovascular Cardiovascular ROS IM: no chest pain, no diaphoresis, no dyspnea, no lightheadedness, no palpitations, no syncope - Respiratory Respiratory: no cough, no dyspnea, no wheezing, no excessive phlegm production - Gastrointestinal Gastrointestinal: abdominal pain, no diarrhea, no hematemesis, no hematochezia, no melena, no nausea, no vomiting Additional comments: c/o suprapubic pain - Genitourinary Genitourinary: no change in urinary stream, no dysuria, no flank pain, no hematuria - Musculoskeletal Musculoskeletal ROS IM: no numbness, no tingling - Integumentary Integumentary IM: no rash, no unusual bruising - Neurological Neurological ROS: no confusion, no convulsions, no focal weakness, no numbness, no tingling, no tremor(s) - Hematologic/Lymphatic Hematologic/Lymphatic: no easy bruising - Constitutional Vitals: Temp Pulse Resp BP Pulse Ox 98.8 F 102 16 104/76 92 11/10/17 11:59 11/10/17 11:59 11/10/17 04:41 11/10/17 11:59 11/10/17 11:59 General appearance: Present: cooperative, A&O X 3, morbidly obese, no acute distress, answers questions appropriately - Head Head exam: Present: atraumatic, normocephalic - Eye Eye exam: Present: PERRL, conjuntiva pink, sclera anicteric Pupils: Present: PERRL - Neck Neck exam general surgery: Present: supple, trachea midline. Absent: lymphadenopathy - Respiratory Respiratory exam: Present: CTAB. Absent: accessory muscle use, rales, rhonchi, wheezes - Cardiovascular Cardiovascular exam: Present: RRR, +S1, +S2. Absent: diastolic murmur, gallop, rubs, systolic murmur - GI/Abdominal GI/Abdominal exam: Present: normal bowel sounds, soft, no peritoneal signs. Absent: distended, tenderness - Extremities Exam Extremities exam: Present: warm, radial pulses palpable and symmetrical. Absent : calf tenderness, cyanotic, pedal edema - Neurological Exam Neurological exam: Present: CN II-XII intact, oriented X3, no focal deficits. Absent: pronater drift, facial droop, speech deficit - Skin Skin exam: Present: dry, intact Internal Med - H&P Results - Labs CBC & Chem 7: 11/10/17 05:35 11/10/17 05:35 Labs: Short CBC 11/10/17 Range/Units 05:35 WBC 10.3 (4.3-11.1) K/mcL Hgb 12.7 (11.5-15.4) g/dL Hct 38.6 (35.3-44.9) % Plt Count 250 (140-400) K/mcL Neutrophils # 8.9 (1.6-8.9) K/mcL BMP 11/10/17 05:35 Sodium 135 L Potassium 4.5 Chloride 105 Carbon Dioxide 21 L BUN 25 H Creatinine 1.16 Glucose 242 H Calcium 9.4 Cardiac Enzymes 11/09/17 11/10/17 11/10/17 Range/Units 22:50 05:35 10:46 Troponin I < 0.03 < 0.03 < 0.03 (< 0.04) ng/mL
[2017-11-10] MEDS ORDERED: Isovue-370 500 ML INFUS..BTL IV ONE (12:43)
[2017-11-10] MEDS: Acetaminophen 325 MG TABLET PO PRN ×2 (14:09→21:11)
[2017-11-10] MEDS ORDERED: Acetaminophen 325 MG TABLET PO SCH (16:00)
[2017-11-10] MEDS: Piperacillin/Tazobactam 3.375 GM in 0.9 % Sodium Chloride Mini Bag 100 ML IVPB SCH (16:01)
[2017-11-10] MEDS: Nicotine 21 MG PATCH.TD24 TD SCH (16:02)
[2017-11-10] MEDS: methylPREDNISolone 125 MG/2 ML VIAL IVP SCH (16:03)
[2017-11-10] MEDS: cloNIDine HCl 0.1 MG TABLET PO SCH ×2 (17:34→21:32)
[2017-11-10] MEDS ORDERED: Insulin DETEMIR 100 UNIT/ML X5UNITS SQ SCH (21:00)
[2017-11-10] MEDS ORDERED: Melatonin 3 MG TABLET PO SCH (21:00)
[2017-11-10] MEDS ORDERED: rOPINIRole 1 MG TABLET PO SCH (21:00)
[2017-11-10] MEDS ORDERED: Insulin DETEMIR 100 UNIT/ML per UNIT SQ ONE (22:00)
[2017-11-10] MEDS ORDERED: Insulin LISPRO 300 UNITS/3 ML VIAL SQ SCH (22:00)
[2017-11-11] MEDS: methylPREDNISolone 125 MG/2 ML VIAL IVP SCH ×2 (00:16→09:35)
[2017-11-11] MEDS: Piperacillin/Tazobactam 3.375 GM in 0.9 % Sodium Chloride Mini Bag 100 ML IVPB SCH ×2 (00:16→07:57)
[2017-11-11] MEDS: Acetaminophen 325 MG TABLET PO PRN (03:28)
[2017-11-11] MEDS: Ipratropium/Albuterol Neb 3 ML IH SCH ×2 (03:28→09:19)
[2017-11-11] MEDS: Insulin LISPRO 300 UNITS/3 ML VIAL SQ SCH ×2 (07:56→11:59)
[2017-11-11] MEDS: Budesonide/Formoterol 160/4.5 MDI IH SCH (09:18)
[2017-11-11] MEDS: Multivit/Ca/Min/Fe/FA 1 TAB TABLET PO SCH (09:31)
[2017-11-11] MEDS: *HR* Ticagrelor 90 MG TABLET PO SCH (09:31)
[2017-11-11] MEDS: Aspirin 81 MG TAB.CHEW PO SCH (09:31)
[2017-11-11] MEDS: Isosorbide MONOnitrate (24 HR) 30 MG TAB.ER.24H PO SCH (09:32)
[2017-11-11] MEDS: *HR* Glimepiride 2 MG TABLET PO SCH (09:32)
[2017-11-11] MEDS: Nicotine 21 MG PATCH.TD24 TD SCH (09:35)
[2017-11-11] MEDS: Fluorometholone OPTH 5 ML BOTTLE OP SCH ×2 (09:37→15:16)
[2017-11-11] MEDS: METFORMIN XR 750MG PO SCH (09:37)
[2017-11-11] MEDS: Metoprolol XL (24 HR) Succ 25 MG TAB.ER.24H PO SCH (09:38)
[2017-11-11] MEDS: ALPRAZolam 1 MG TABLET PO PRN (09:40)
[2017-11-11 11:47] VITALS: BP 81/47
[2017-11-11 11:47] LABS: Hematocrit 34.9 % (35.3-44.9); Hemoglobin 11.5 g/dL (11.5-15.4); Mean Corpuscular Hemoglobin 29.9 pg (28.0-33.3); Mean Corpuscular Volume 90.6 fL (83.0-100.0); Mean Platelet Volume 10.4 fL (9.4-12.4); Platelet Count 252 K/mcL (140-400); Red Blood Count 3.85 M/mcL (3.82-4.97); Red Cell Distribution Width 16.6 % (11.5-14.5)
[2017-11-11 12:05] LABS: BUN/Creatinine Ratio 25 (6-26); Blood Urea Nitrogen 22 mg/dL (6-20); Calcium 9.3 mg/dL (8.6-10.3); Carbon Dioxide 24 mEq/L (23-29); Chloride 105 mEq/L (98-107); Glucose 268 mg/dL (70-105); Osmolality,Calculated 297 (280-300); Potassium 4.2 mEq/L (3.5-5.1); Sodium 137 mEq/L (136-145); eGFR For African Americans > 60 (> 60); eGFR For Non-African Americans > 60 (> 60)
--- NOTE | 2017-11-11 12:18 | Discharge Summary ---
Orders not resulted at time of discharge: Pending orders 11/11/17 10:17 EKG [ECG 12 lead ECG] [ECG] Routine 11/11/17 11:36 CBC no Diff [Complete Blood Count w/o Diff] [HEME] Routine Date of Encounter: 11/11/17 Time of Encounter: 12:16 - Discharge Diagnosis (1) COPD exacerbation Priority: Primary Status: Acute Comments: take Doxycycline and prednisone as prescribed. continue inhaled meds and O2. 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 Qualifiers: Chronic pain type: other chronic pain Qualified Code(s): G89.29 - Other chronic pain (3) DMII (diabetes mellitus, type 2) Priority: Secondary Status: Chronic Comments: continue current meds. f/u with PCP. 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 monitor BP Qualifiers: Hypertension type: essential hypertension Qualified Code(s): I10 - Essential (primary) hypertension (5) Nicotine abuse Priority: Secondary Status: Chronic Comments: education provided (6) Obesity Priority: Secondary Status: Chronic Comments: education provided on diet and exercise. Qualifiers: Obesity type: unspecified obesity type Obesity classification: adult class 3 (BMI >= 40) Serious obesity comorbidity presence: unspecified whether serious comorbidity present Body mass index: BMI 40.0-44.9 Qualified Code(s) : E66.9 - Obesity, unspecified; Z68.41 - Body mass index (BMI) 40.0-44.9, adult ; Z68.41 - Body mass index (BMI) 40.0-44.9, adult; Z68.41 - Body mass index (BMI ) 40.0-44.9, adult; Z68.41 - Body mass index (BMI) 40.0-44.9, adult Hospital course: Ms. Barney is a 57 year old female discharging to home after COPD exacerbation. to go home with doxycline and prednisone. continue current home meds. monitor BP.. f/u with PCP in next 3 days. Discharge discussed with: patient, nurse - Time Spent with Patient Total time spent providing and/or coordinating discharge services: Less than 30 minutes - Discharge Medications Home Medications: Albuterol Sulfate [Albuterol Inhaler] 2 puff IH Q6HR PRN 12/22/14 [History] Budesonide/Formoterol 160/4.5 [Symbicort] 2 puff IH BIDR 12/22/14 [History] Chlordiazepoxide/Clidinium 1 each PO BID 12/22/14 [History] DULoxetine [Cymbalta] 120 mg PO QAM 12/22/14 [History] Gabapentin [Neurontin] 600 mg PO HS 12/22/14 [History] rOPINIRole [Requip] 3 mg PO HS 12/22/14 [History] Alprazolam [Xanax] 2 mg PO TID PRN 01/26/17 [History] Glimepiride [Amaryl] 2 mg PO BID 01/26/17 [History] Lovastatin 80 mg PO HS 01/26/17 [History] Metformin HCl [Glucophage Xr] 750 mg PO BID 01/26/17 [History] Mv,Iron,Min/Folic Acid/Biotin [Hair, Skin and Nails Softgel] 66.7 mcg PO DAILY 01/26/17 [History] Pioglitazone [Actos] 45 mg PO 0800 01/26/17 [History] Oxybutynin Chloride [Ditropan Xl] 5 mg PO DAILY 04/08/17 [History] PARoxetine HCl [Paroxetine HCl] 10 mg PO BID 04/08/17 [History] Aspirin 81 mg PO DAILY tab.chew 04/10/17 [Rx] Albuterol Sulfate 2.5 mg IH Q6HR 11/10/17 [History] Azelastine HCl 1 drop BOTH EYES BID 11/10/17 [History] Esomeprazole Magnesium [Nexium] 40 mg PO DAILY 11/10/17 [History] Fluorometholone 1 drop BOTH EYES TID 11/10/17 [History] Isosorbide MONOnitrate (24 HR) [Imdur] 30 mg PO DAILY 11/10/17 [History] Lisinopril 2.5 mg PO DAILY 11/10/17 [History] Melatonin 10 mg PO HS 11/10/17 [History] Nitroglycerin 0.4 mg SL PRN PRN 11/10/17 [History] Omeprazole [PriLOSEC] 40 mg PO BID 11/10/17 [History] Ticagrelor [Brilinta] 90 mg PO BID 11/10/17 [History] cloNIDine HCl [CloNIDine HCl] 0.3 mg PO QPM 11/10/17 [History] Acetaminophen [Tylenol] 650 mg PO Q4HR PRN tablet 11/11/17 [Rx] Ezetimibe [Zetia] 1 mg PO DAILY 11/11/17 [Rx] Fluticasone Propionate Nasal [Flonase] 100 mcg NS DAILY bottle 11/11/17 [Rx] Insulin DETEMIR [Levemir] 15 unit SQ HS s2dlgbn 11/11/17 [Rx] Insulin DETEMIR [Levemir] 15 unit SQ ONCE mls 11/11/17 [Rx] Insulin DETEMIR [Levemir] 20 unit SQ ONCE mls 11/11/17 [Rx] Nitroglycerin 0.4 mg SL Q5MIN PRN tab.subl 11/11/17 [Rx] Allergies/Adverse Reactions: 3 Allergy/AdvReac Type Severity Reaction Status Date / Time atorvastatin [From Lipitor] Allergy Swelling Verified 04/08/17 08:17 of Lip/Tongue/Throat rosuvastatin [From Crestor] Allergy Swelling Verified 04/08/17 08:17 of Lip/Tongue/Throat acetaminophen [From Percocet] AdvReac See Verified 04/08/17 08:17 Comments morphine AdvReac Vomiting Verified 04/08/17 08:17 Oxycodone [From Percocet] AdvReac See Verified 04/08/17 08:17 Comments propoxyphene AdvReac Vomiting Verified 04/08/17 08:17 [From Darvocet-N] Varenicline [From Chantix] AdvReac See Verified 04/08/17 08:17 Comments Date of admission: 11/09/17 20:15 Primary care physician: Anahy Cruz MD Discharging clinician: Ronald Nazario Anticipated date of discharge: 11/11/17 - Constitutional Vitals: Temp Pulse Resp BP Pulse Ox 97.6 F 76 16 81/47 97 11/11/17 11:46 11/11/17 11:46 11/11/17 11:46 11/11/17 11:46 11/11/17 11:46 General appearance: Present: cooperative, A&O X 3, morbidly obese, no acute distress, answers questions appropriately - Head Head exam: Present: atraumatic, normocephalic - Eye Eye exam: Present: PERRL, conjuntiva pink, sclera anicteric Pupils: Present: PERRL - Neck Neck exam general surgery: Present: supple, trachea midline. Absent: lymphadenopathy - Respiratory Respiratory exam: Present: CTAB. Absent: accessory muscle use, rales, rhonchi, wheezes - Cardiovascular Cardiovascular exam: Present: RRR, +S1, +S2. Absent: diastolic murmur, gallop, rubs, systolic murmur - GI/Abdominal GI/Abdominal exam: Present: normal bowel sounds, soft, no peritoneal signs. Absent: distended, tenderness - Extremities Exam Extremities exam: Present: warm, radial pulses palpable and symmetrical. Absent : calf tenderness, cyanotic, pedal edema - Neurological Exam Neurological exam: Present: CN II-XII intact, oriented X3, no focal deficits. Absent: pronater drift, facial droop, speech deficit - Skin Skin exam: Present: dry, intact - Patient Status Disposition: Home, Self-Care Condition: Good Overall status at discharge: patient is progressing back to baseline - Discharge Instructions Instructions: How to Stop Smoking (DC), Cigarette Smoking and Your Health (GEN) - Diet and Activity Activity: increase activity as tolerated Diet: diabetic diet
--- NOTE | 2017-11-11 17:11 | Electrocardiograph Report ---
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
[2017-11-11] MEDS ORDERED: Levofloxacin 750 MG/150 ML 750 MG/150 ML BAG IVPB SCH (18:00)
[2017-11-11] MEDS ORDERED: Insulin DETEMIR 100 UNIT/ML X5UNITS SQ SCH (21:00)
--- NOTE | 2017-11-12 19:08 | Electrocardiograph Report ---
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
--- NOTE | 2017-11-12 19:09 | Electrocardiograph Report ---
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
== END 2017-11-11 16:30 | disposition home or self-care (01) ==
LOC: INPGRE 13:45 → EMEROOGRE 13:45 → INPGRE 20:33